=== PATIENT | male | born 2000 | race African-American/Black ===

== ENCOUNTER 2022-04-06 22:46 | Emergency (ER) | payer OTHER ==
[2022-04-06 22:51] VITALS: BMI 22.6
[2022-04-07 01:15] LABS: BASO % 0.5 % (0-2.0); EOS % 0.3 % (0-4.5); HEMATOCRIT 44.8 % (35.4-49); HEMOGLOBIN 15.4 GM/dL (11.7-16.9); LYMPH % 12.6 % (8-40); MCH 31.2 pg (25.7-33.7); MCHC 34.4 g/dl (32.0-35.9); MEAN CELL VOLUME 90.6 fl (80-96); MEAN PLT VOLUME 9.4 fl (7.5-11.1); MONO % 5.6 % (3.8-10.2); PLATELET COUNT 179 10^3/uL (134-434); RBC 4.95 M/mm3 (4.00-5.60); RDW 13.1 % (11.9-15.9); WHITE BLOOD COUNT 9.9 K/mm3 (4.0-10.0)
[2022-04-07] MEDS ORDERED: ALBUTEROL SO4 2.5/IPRATROPIUM 0.5 INH SOL 3 ML VIAL.NEB. NEB ONE (01:29)
[2022-04-07 01:35] LABS: ALBUMIN 4.2 g/dl (3.4-5.0)
[2022-04-07 01:39] LABS: CREATININE 1.2 mg/dL (0.55-1.3)
[2022-04-07 01:40] LABS: BILIRUBIN,TOTAL 0.9 mg/dL (0.2-1)
[2022-04-07 02:12] VITALS: BP 120/78; PULSE 104; RESP 20; TEMP 98.4
[2022-04-07 02:18] LABS: BLOOD UREA NITROGEN 13.4 mg/dL (7-18); CALCIUM 9.5 mg/dL (8.5-10.1); TOT PROT 7.9 g/dl (6.4-8.2)
[2022-04-07] MEDS ORDERED: ACETAMINOPHEN 325 MG TABLET (FP) PO ONE (03:19)
[2022-04-07] MEDS ORDERED: FAMOTIDINE 20 MG/50 ML IVPB 20 MG/50 ML MG IVPB ONE ×2 (03:20→03:25)
[2022-04-07] MEDS ORDERED: MAG HYDROX/AL HYDROX/SIMETH 30 ML UNIT-DOSE CUP PO ONE (03:20)
[2022-04-07] MEDS ORDERED: ACETAMINOPHEN 325 MG TABLET (FP) ONE (03:24)
[2022-04-07] MEDS ORDERED: MAG HYDROX/AL HYDROX/SIMETH 30 ML UNIT-DOSE CUP ONE (03:25)
== END 2022-04-07 03:45 | disposition home or self-care (01) ==
LOC: JER 22:46
PROC: 3E033GC Introduction of Other Therapeutic Substance into Peripheral Vein, Percutaneous Approach (ICD-10-PCS; principal; 2022-04-06)
DX: R10.9 Unspecified abdominal pain (principal)
CPT/HCPCS: 36415; 71046-TC-FY; 71275-TC; 80053; 84484; 85025; 93005; 93010; 99285-25; Q9967

== ENCOUNTER 2022-07-18 10:33 | Day surgery (SDC) | payer OTHER ==
[2022-07-13 11:11] VITALS: BMI 21.7
[2022-07-18 12:36] VITALS: RESP 18; TEMP 97.5
[2022-07-18 12:38] VITALS: BP 107/56; PULSE 77
== END 2022-07-18 13:02 | disposition home or self-care (01) ==
LOC: FASU-ENDO 10:33
PROVIDERS: ATTEND Internal Medicine Gastroenterology
PROC: 0DB48ZX Excision of Esophagogastric Junction, Via Natural or Artificial Opening Endoscopic, Diagnostic (ICD-10-PCS; 2022-07-18)
PROC: 0DB98ZX Excision of Duodenum, Via Natural or Artificial Opening Endoscopic, Diagnostic (ICD-10-PCS; principal; 2022-07-18 12:01)
DX: K29.50 Unspecified chronic gastritis without bleeding (principal); K22.89 Other specified disease of esophagus
CPT/HCPCS: 88305-TC; 88342-TC